=== PATIENT | female | born 1980 | race Two or more races ===

== ENCOUNTER 2024-01-30 22:10 | Inpatient (IN) | payer OTHER, MEDICAID ==
[~2024-01-30] VITALS: Ht 160 cm; Wt 105.0 kg
[2024-01-30] MEDS: ACETAMINOPHEN 500 MG TAB PO ONE (22:41)
[2024-01-31 00:20] LABS: Basophils # (auto) 0 10 ^3/uL (0-0.2); Basophils % (auto) 0.2 % (0.0-2.0); Eosinophils # (auto) 0 10 ^3/uL (0-0.8); Hematocrit 30.7 % (36.0-46.0); Hemoglobin 9.6 g/dL (12.2-16.2); Mean Corpuscular Hemoglobin 25.3 pg (28.0-32.0); Mean Corpuscular Hgb Conc. 31.4 g/dL (32.0-36.0); Mean Corpuscular Volume 80.8 fL (80.0-100.0); Monocytes # (auto) 0.9 10 ^3/uL (0-1.3); Monocytes % (auto) 5.3 % (0.0-12.0); Neutrophils # (auto) 14.6 10 ^3/uL (1.6-8.6); Neutrophils % (auto) 88.5 % (37.0-80.0); Platelet Count (auto) 329 10^3/uL (140-450); Red Cell Distribution Width 15.3 % (11.8-14.3); White Blood Cell 16.5 10^3/uL (4.4-10.8)
[2024-01-31 00:29] LABS: Chloride 102 mmol/L (98-107); Potassium 3.1 mmol/L (3.5-5.1); Sodium 134 mmol/L (136-145)
[2024-01-31 00:30] LABS: Anion Gap 11 (5-15); Carbon Dioxide 21 mmol/L (20-31)
[2024-01-31 00:31] LABS: Calcium 8.8 mg/dL (8.7-10.4)
[2024-01-31 00:35] LABS: BUN/Creatinine Ratio 7.6 (10.0-20.0); Blood Urea Nitrogen 7 mg/dL (9-23); Glucose 196 mg/dL (74-106)
[2024-01-31 00:41] LABS: Lactic Acid w/Reflex 3.2 mmol/L (0.4-2.0)
[2024-01-31 01:15] VITALS: PULSE 86; RESP 24; O2SAT 97
[2024-01-31 01:18] LABS: Urine Bacteria None Seen /hpf (None Seen)
[2024-01-31] MEDS: cefTRIAXone 1GM/50ML D5W 50 ML IV ONE (01:23)
[2024-01-31] MEDS: SODIUM CHLORIDE 0.9% 1,000 ML IV ONE ×5 (01:23→12:11)
[2024-01-31 01:29] LABS: Urine Blood 1+ /uL (Negative); Urine Clarity Turbid (Clear); Urine Color Light-Yellow (Yellow); Urine Protein, UAD 1+ (Negative); Urine Specific Gravity 1.013 (1.001-1.035); Urine Urobilinogen Normal (Negative); Urine WBC 181 /hpf (0 - 5)
[2024-01-31] MEDS: VANCOMYCIN 1GM/250ML KIT 200 ML IV ONE ×2 (02:22→04:51)
--- NOTE | 2024-01-31 02:55 | ED.PDOC ---
History of Present Illness HPI Comments 43 y/o F presents with c/o vaginal abscess for the past 3 days, today. Patient endorses on noticing abscess to her left labia for the past 3 days and being sent after being seen and evaluated at [facility] urgent care facility for further workup, due to being found with a fever temperature of 102.0F and an elevated heart rate. Patient denies having any vaginal discharge, pain, chills, or other associated symptoms or modifiers at this time. 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 Family History Family History: Unknown Social History Smoker: Non-Smoker Alcohol: Denies ETOH Use Drugs: Denies Drug Use Lives In: Home All Other Systems: Reviewed and Negative (see HPI) Physical Exam General Appearance: Moderate Distress, Obese HEENT: Normal ENT Inspection, Pharynx Normal, TMs Normal Neck: Full Range of Motion, Non-Tender, Normal, Normal Inspection Respiratory: Chest Non-Tender, Lungs Clear, No Accessory Muscle Use, No Respiratory Distress, Normal Breath Sounds Cardiovascular: No Edema, No JVD, No Murmur, No Gallop, Normal Peripheral Pulses, Regular Rate/Rhythm Breast Exam: Deferred Gastrointestinal: No Organomegaly, Non Tender, No Pulsatile Mass, Normal Bowel Sounds, Soft Genitalia: Other Pelvic: Deferred, Other (Large left Bartholin's cyst) Rectal: Deferred Extremities: No calf tenderness, Normal capillary refill, Normal inspection, Normal range of motion, Non-tender, No pedal edema Musculoskeletal : Apperance: Normal Neurologic: Alert, hospital cleaning specialist II-XII nml as Tested, No Motor Deficits, Normal Affect, Normal Mood, No Sensory Deficits Cerebellar Function: Normal Reflexes: Normal Skin: Dry, Normal Color, Warm Lymphatic: No Adenopathy Was a procedure done? Was a procedure done?: No Differential Dx Considerations may include: Bartholin cyst X-Ray, Labs, Meds, VS Vital Signs Date Time Temp Pulse Resp B/P (MAP) Pulse Ox O2 Delivery O2 Flow Rate FiO2 01/31/24 03:23 86/42 01/31/24 03:14 77 22 86/42 (57) 97 01/31/24 03:12 79 25 76/34 (48) 97 01/31/24 01:56 75 15 97/56 (70) 95 01/31/24 01:47 Room Air* 0 21 01/31/24 01:15 98.2 86 24 93/56 (68) 97 98.2 01/31/24 01:15 86 24 97 Room Air* 0 21 01/31/24 01:15 98.2 01/30/24 22:41 102.0 01/30/24 22:30 102.0 107 16 99/62 (74) 97 Lab Test 01/31/24 01:57 01/30/24 23:45 01/30/24 22:42 Range/Units Lactic Acid Level 1.5 3.2 *H 0.4-2.0 mmol/L White Blood Count 16.5 H 4.4-10.8 10^3/uL Red Blood Count 3.80 L 4.0-5.20 10^6/uL Hemoglobin 9.6 L 12.2-16.2 g/dL Hematocrit 30.7 L 36.0-46.0 % Mean Corpuscular Volume 80.8 80.0-100.0 fL Mean Corpuscular Hemoglobin 25.3 L 28.0-32.0 pg Mean Corpuscular Hemoglobin Concent 31.4 L 32.0-36.0 g/dL Red Cell Distribution Width 15.3 H 11.8-14.3 % Platelet Count 329 140-450 10^3/uL Mean Platelet Volume 6.9 6.9-10.8 fL Neutrophils (%) (Auto) 88.5 H 37.0-80.0 % Lymphocytes (%) (Auto) 6.0 L 10.0-50.0 % Monocytes (%) (Auto) 5.3 0.0-12.0 % Eosinophils (%) (Auto) 0.0 0.0-7.0 % Basophils (%) (Auto) 0.2 0.0-2.0 % Neutrophils # (Auto) 14.6 H 1.6-8.6 10 ^3/uL Lymphocytes # (Auto) 1.0 0.4-5.4 10 ^3/uL Monocytes # (Auto) 0.9 0-1.3 10 ^3/uL Eosinophils # (Auto) 0 0-0.8 10 ^3/uL Basophils # (Auto) 0 0-0.2 10 ^3/uL Nucleated Red Blood Cells 0.0 % Sodium Level 134 L 136-145 mmol/L Potassium Level 3.1 L 3.5-5.1 mmol/L Chloride Level 102 98-107 mmol/L Carbon Dioxide Level 21 20-31 mmol/L Anion Gap 11 5-15 Blood Urea Nitrogen 7 L 9-23 mg/dL Creatinine 0.92 0.550-1.02 mg/dL Glomerular Filtration Rate Calc 80 >90 mL/min BUN/Creatinine Ratio 7.6 L 10.0-20.0 Serum Glucose 196 H 74-106 mg/dL Calcium Level 8.8 8.7-10.4 mg/dL Urine Color Light-yellow Yellow Urine Clarity Turbid H Clear Urine pH 6.0 5.0-9.0 Urine Specific [place] 1.013 1.001-1.035 Urine Protein 1+ H Negative Urine Ketones Negative Negative Urine Blood 1+ H Negative /uL Urine Nitrite Negative Negative Urine Bilirubin Negative Negative Urine Urobilinogen Normal Negative mg/dL Urine Leukocyte Esterase 3+ Negative /uL Urine RBC 9 0 - 4 /hpf Urine WBC 181 0 - 5 /hpf Urine Squamous Epithelial Cells Mod <5 /hpf Urine Bacteria None seen None Seen /hpf Urine Glucose Normal Normal mg/dL Urine Test Negative Negative Current Medications Medications (Trade) Dose Ordered Sig/Key Route Start Time Stop Time Status Last Admin Acetaminophen (Tylenol Tablet) 1,000 mg ONCE ONCE PO 01/30/24 22:30 01/30/24 22:31 DC 01/30/24 22:41 Sodium Chloride 1,000 ml @ 1,000 mls/hr Q1H ONCE IV 01/31/24 01:00 01/31/24 01:59 DC 01/31/24 01:23 Sodium Chloride 1,000 ml @ 1,000 mls/hr Q1H ONCE IV 01/31/24 01:00 01/31/24 01:59 DC 01/31/24 01:23 Ceftriaxone Sodium 50 ml @ 100 mls/hr ONCE ONCE IV 01/31/24 01:00 01/31/24 01:29 DC 01/31/24 01:23 Vancomycin HCl 200 ml @ 200 mls/hr ONCE ONCE IV 01/31/24 01:00 01/31/24 01:59 DC 01/31/24 02:22 Fentanyl Citrate 100 mcg ONCE ONCE IV 01/31/24 03:00 01/31/24 03:01 DC 01/31/24 03:23 In 1st lactic acid is 3.2. Second lactic acid is 1.5 UA reveals urinary tract infection. CBC reveals a white blood cell count of 16.5. A septic workup was carried out. The patient is seen IV fluids antibiotics and Tylenol for fever. The patient was accepted by Dr. Mascorro at [facility]. Authorization #[id number] Time of 1ST Reevaluation: 00:00 Reevaluation 1ST: Unchanged Patient Education/Counseling: Diagnosis, Treatment Family Education/Counseling: No Family Present Departure 1 Departure Time of Disposition: 04:01 Impression: Primary Impression: Bartholin cyst Additional Impressions: UTI (urinary tract infection) Qualified Codes: N39.0 - Urinary tract infection, site not specified; R31.9 - Hematuria, unspecified Sepsis Qualified Codes: A41.9 - Sepsis, unspecified organism Disposition: 02 SHORT TERM HOSPITAL Condition: Stable Additional Instructions: The patient will be transferred to [place] by Dr. Mascorro Discharged With: Self Critical Care Note Critical Care Time?: Yes (35 min-critical care time only) Stability Stability form required: No Heart Score Heart Score: Heart Score Response (Comments) Value History N/A 0 EKG N/A 0 Age N/A 0 Risk Factors N/A 0 Troponin N/A 0 Total 0 I personally scribed for SONIA SLOAN MD ([email or web address]) on 01/31/24 at 02:55. Electronically submitted by Aryan Mullins ([email or web address]). SONIA SLOAN MD Jan 31, 2024 02:55
[2024-01-31] MEDS: fentaNYL CITRATE 100 MCG/2 ML VL IV ONE (03:23)
[2024-01-31] MEDS ORDERED: ONDANSETRON HCL 4 MG/2 ML VIAL IV PRN (04:30)
[2024-01-31] MEDS ORDERED: VANCOMYCIN PER PHARMACY 0 MG IV SCH (04:30)
[2024-01-31] MEDS: IOHEXOL 300 MG/ML 100ML BOTTLE IJ ONE (04:51)
[2024-01-31] MEDS: LIDOCAINE 1% HCL (LOCAL ANESTH.) INJ 20ML MDV ONE (04:52)
[2024-01-31] MEDS: POTASSIUM CHL 20 Meq TABLET PO ONE (05:05)
--- NOTE | 2024-01-31 05:18 | DVH ---
Exam: CT CT AB PEL WITH IV CON ONLY History: left sided pelvic pain/swelling r/o abscess Comparison Study: None available at time of dictation. Technique: Multidetector spiral CT of the abdomen was performed from lung bases to pubic symphysis. Axial imaging was performed with intravenous contrast following the uneventful administration of 100 ml Omnipaque 300. Coronal and sagittal multiplanar reformats were obtained from the axial data set b y the technologist. Radiation Dose : 1. Abdomen/Pelvis: CTDIvol 25.3 mGy, DLP 1520.9 mGy*cm. Findings: Lung Bases: Lung bases are clear. Visualized portions of the heart and pericardium are unremarkable. Liver: The liver is normal in size. No focal lesions. Gallbladder and Biliary Tree: The gallbladder is unremarkable No intrahepatic or extrahepatic bilia ry ductal dilatation. Spleen: Unremarkable Pancreas: The pancreas enhances normally and there are no focal lesions. The main pancreatic duct i s not dilated Adrenal Glands: Unremarkable Kidneys: Kidneys enhance symmetrically. No hydronephrosis. Punctate nonobstructing left nephrolithia sis. GI tract: Evidence of prior gastric surgery. There is a hiatal hernia. No evidence of small bowel wal l thickening or abnormal dilatation to suggest bowel obstruction. The colon is unremarkable. The appe ndix is not visualized, however no inflammatory changes in the right lower quadrant to suggest acute appendicitis. Peritoneum/mesentery/retroperitoneum. No evidence of free intraperitoneal air. No ascites. No evidenc e of suspicious lymphadenopathy. Abdominal Wall: Unremarkable. Vasculature: Abdominal aorta and main branches are unremarkable. Normal vascular enhancement. Urinary Bladder: Grossly unremarkable for degree of distention. Pelvic Organs: Unremarkable Musculoskeletal: No aggressive focal bony lesions, acute fractures or dislocation. Soft tissues: There is infiltration of the fat in the left left groin without fluid collection. IMPRESSION: 1. Infiltration of the fat in the left groin suggesting infectious or inflammatory etiology/celluliti s. No evidence of fluid collection. 2. Punctate nonobstructing left nephrolithiasis. END IMPRESSION:
--- NOTE | 2024-01-31 07:10 | DVHHP2 ---
History of Present Illness Reason for Visit: Vaginal abscess History of Present Illness 43-year-old female presents for evaluation of vaginal abscess. Patient reports noticing a lump/abscess three days ago her left labia. Patient was seen at urgent care was advised to present to emergency department due to tachycardia and low blood pressure. Patient denies any other acute complaints at the moment. Past Medical History None Past Surgical History , gastric bypass and hysterectomy Family History Noncontributory Smoke: No ALCOHOL: none Drugs: None Lives: with Family Review of Systems Review of Systems Review of systems are currently negative otherwise addressed in HPI. Allergies: Coded Allergies: Ibuprofen (Verified Allergy, Unknown, 01/30/24) Medications Current Medications Medications Dose Ordered Sig/Key Route Start Time Stop Time Status Last Admin Dose Admin Vancomycin HCl 0 ml @ 0 mls/hr UD IV 01/31/24 04:30 UNV Acetaminophen/ Hydrocodone Bitart 1 tab Q4HP PRN PO 01/31/24 04:30 Ondansetron HCl 4 mg Q4HP PRN IV 01/31/24 04:30 Acetaminophen 650 mg Q6HP PRN PO 01/31/24 04:30 Ceftriaxone Sodium 50 ml @ 100 mls/hr DAILY@09 IV 01/31/24 09:00 UNV Exam Vital Signs Vital Signs Date Time Temp Pulse Resp B/P (MAP) Pulse Ox O2 Delivery O2 Flow Rate FiO2 01/31/24 05:47 80 24 80/43 (55) 98 01/31/24 04:00 98.1 98.1 01/31/24 01:47 Room Air* 0 21 Exam Gen: 43-year-old female in mild distress, obese Skin: Warm, dry, normal color and texture, no rash. HEENT: Normocephalic atraumatic, mucous membranes moist and pink. Neck: Cervical and supraclavicular nodes normal without enlargement, trachea is midline, thyroid gland is normal without masses. Pulmonary: Clear to auscultation and percussion bilaterally. Cardiac: Regular rate and rhythm. No murmur : Large left Bartholin cyst Abdomen: Soft, nontender, nondistended, bowel sounds present all 4 quadrants, no guarding, no rigidity, no organomegaly. Extremities: No cyanosis, clubbing, no edema Neuro: Cranial nerves II through XII grossly intact, normal affect and speech, no focal motor deficits. Labs/Xrays ORDERING PHYSICIAN: EDWARD HART PROCEDURE(s): ABPLIV - CT AB PEL WITH IV CON ONLY REASON: left sided pelvic pain/swelling r/o abscess ORDER NUMBER(s): [id number], ACCESSION NUMBER(s): [id number] Exam: CT CT AB PEL WITH IV CON ONLY History: left sided pelvic pain/swelling r/o abscess Comparison Study: None available at time of dictation. Technique: Multidetector spiral CT of the abdomen was performed from lung bases to pubic symphysis. Axial imaging was performed with intravenous contrast following the uneventful administration of 100 ml Omnipaque 300. Coronal and sagittal multiplanar reformats were obtained from the axial data set by the technologist. Radiation Dose : 1. Abdomen/Pelvis: CTDIvol 25.3 mGy, DLP 1520.9 mGy*cm. Findings: Lung Bases: Lung bases are clear. Visualized portions of the heart and pericardium are unremarkable. Liver: The liver is normal in size. No focal lesions. Gallbladder and Biliary Tree: The gallbladder is unremarkable No intrahepatic or extrahepatic biliary ductal dilatation. Spleen: Unremarkable Pancreas: The pancreas enhances normally and there are no focal lesions. The main pancreatic duct is not dilated Adrenal Glands: Unremarkable Kidneys: Kidneys enhance symmetrically. No hydronephrosis. Punctate nonob structing left nephrolithiasis. GI tract: Evidence of prior gastric surgery. There is a hiatal hernia. No evidence of small bowel wall thickening or abnormal dilatation to suggest bowel obstruction. The colon is unremarkable. The appendix is not visualized, however no inflammatory changes in the right lower quadrant to suggest acute appendicitis. Peritoneum/mesentery/retroperitoneum. No evidence of free intraperitoneal air. No ascites. No evidence of suspicious lymphadenopathy. Abdominal Wall: Unremarkable. Vasculature: Abdominal aorta and main branches are unremarkable. Normal vascular enhancement. Urinary Bladder: Grossly unremarkable for degree of distention. Pelvic Organs: Unremarkable Musculoskeletal: No aggressive focal bony lesions, acute fractures or dislocation. Soft tissues: There is infiltration of the fat in the left left groin without fluid collection. IMPRESSION: 1. Infiltration of the fat in the left groin suggesting infectious or inflammatory etiology/cellulitis. No evidence of fluid collection. 2. Punctate nonobstructing left nephrolithiasis. END IMPRESSION: ATED BY: TERESE HINTON MD Labs Test 01/31/24 01:57 01/30/24 23:45 01/30/24 22:42 Range/Units Lactic Acid Level 1.5 0.4-2.0 mmol/L White Blood Count 16.5 H 4.4-10.8 10^3/uL Red Blood Count 3.80 L 4.0-5.20 10^6/uL Hemoglobin 9.6 L 12.2-16.2 g/dL Hematocrit 30.7 L 36.0-46.0 % Mean Corpuscular Volume 80.8 80.0-100.0 fL Mean Corpuscular Hemoglobin 25.3 L 28.0-32.0 pg Mean Corpuscular Hemoglobin Concent 31.4 L 32.0-36.0 g/dL Red Cell Distribution Width 15.3 H 11.8-14.3 % Platelet Count 329 140-450 10^3/uL Mean Platelet Volume 6.9 6.9-10.8 fL Neutrophils (%) (Auto) 88.5 H 37.0-80.0 % Lymphocytes (%) (Auto) 6.0 L 10.0-50.0 % Monocytes (%) (Auto) 5.3 0.0-12.0 % Eosinophils (%) (Auto) 0.0 0.0-7.0 % Basophils (%) (Auto) 0.2 0.0-2.0 % Neutrophils # (Auto) 14.6 H 1.6-8.6 10 ^3/uL Lymphocytes # (Auto) 1.0 0.4-5.4 10 ^3/uL Monocytes # (Auto) 0.9 0-1.3 10 ^3/uL Eosinophils # (Auto) 0 0-0.8 10 ^3/uL Basophils # (Auto) 0 0-0.2 10 ^3/uL Nucleated Red Blood Cells 0.0 % Sodium Level 134 L 136-145 mmol/L Potassium Level 3.1 L 3.5-5.1 mmol/L Chloride Level 102 98-107 mmol/L Carbon Dioxide Level 21 20-31 mmol/L Anion Gap 11 5-15 Blood Urea Nitrogen 7 L 9-23 mg/dL Creatinine 0.92 0.550-1.02 mg/dL Glomerular Filtration Rate Calc 80 >90 mL/min BUN/Creatinine Ratio 7.6 L 10.0-20.0 Serum Glucose 196 H 74-106 mg/dL Calcium Level 8.8 8.7-10.4 mg/dL Urine Color Light-yellow Yellow Urine Clarity Turbid H Clear Urine pH 6.0 5.0-9.0 Urine Specific [place] 1.013 1.001-1.035 Urine Protein 1+ H Negative Urine Ketones Negative Negative Urine Blood 1+ H Negative /uL Urine Nitrite Negative Negative Urine Bilirubin Negative Negative Urine Urobilinogen Normal Negative mg/dL Urine Leukocyte Esterase 3+ Negative /uL Urine RBC 9 0 - 4 /hpf Urine WBC 181 0 - 5 /hpf Urine Squamous Epithelial Cells Mod <5 /hpf Urine Bacteria None seen None Seen /hpf Urine Glucose Normal Normal mg/dL Urine Test Negative Negative Assessment/Plan Assessment/Plan Assessment Bartholin cyst Leukocytosis Early sepsis UTI Hypokalemia Hypotension Plan Admit the patient to telemetry to the hospitalist Rocephin/vancomycin Maintenance IV fluids Replete electrolytes Continue treatment per orders. Plan discussed with: Patient My Orders Orders - MANDA FAITH Procedure Category Date Status Time * Surgical Consult CONS 01/31/24 Transmitted Vancomycin Per PHA 01/31/24 Pending Pharmacy 04:30 Regular Diet DIET 01/31/24 Transmitted Breakfast Basic Metabolic Panel LAB 02/01/24 Verified 04:00 Admit ADMIT 01/31/24 Transmitted 04:24 Hydrocodone-Acet PHA 01/31/24 In Process 5/325mg Tab ([place] 04:30 Ondansetron Hcl PHA 01/31/24 In Process (Zofran) 04:30 Complete Blood Count LAB 02/01/24 Verified 04:00 Condition: Stable KI 01/31/24 In Process 04:24 Acetaminophen Tablet PHA 01/31/24 In Process (Tylenol Tablet) 04:30 Bedrest With Bathroom KI 01/31/24 In Process Privileg 04:24 Ceftriaxone 1gm/50ml PHA 01/31/24 Logged D5w (Rocephin) 09:00 Albumin 5% (Albutein) PHA 01/31/24 Logged 07:00 Sodium Chloride 0.9% PHA 01/31/24 Logged 07:00 Date of Service: Jan 31, 2024 Billing Provider: MANDA FAITH Common Visit Codes: [id number] INP/OBS CARE (HIGH) MANDA FAITH AGACNP Jan 31, 2024 07:10
[2024-01-31 07:32] VITALS: PULSE 86; RESP 16; O2SAT 99
[2024-01-31] MEDS: ALBUMIN 5% 250 ML IV ONE (07:41)
[2024-01-31] MEDS: ACETAMINOPHEN 325 MG TAB PO PRN (09:31)
[2024-01-31] MEDS: cefTRIAXone 1GM/50ML D5W 50 ML IV SCH (09:32)
--- NOTE | 2024-01-31 11:25 | DVHPN2 ---
Subjective Patient seen and examined at bedside. No complaint today. Reviewed: Care Plan, H&P, Labs, Medications, Previous Orders, Radiology Changes from previous H/P or p: No Changes Objective Vitals Vital Signs Date Time Temp Pulse Resp B/P (MAP) Pulse Ox O2 Delivery O2 Flow Rate FiO2 01/31/24 08:00 83 01/31/24 07:32 16 99 Room Air* 0 21 01/31/24 07:32 98.2 83/50 (61) 98.2 Intake/Output Intake and Output 01/31/24 07:00 Intake Total 3250 ml Balance 3250 ml Intake IV Total 3250 ml General Appearance: Alert, No acute distress HEENT: Atraumatic, PERRLA, EOMI, Mucous membr. moist/pink Neck: Supple Lungs: Clear to auscultation, Normal air movement Cardiovascular: Regular rate, Normal S1, Normal S2, No murmurs, Gallops, Rubs Abdomen: Normal bowel sounds, Soft, No tenderness Extremities: Normal pulses Neuro: Cranial nerves 3-12 NL Psych/Mental Status: Mental status NL Medications Current Medications Medications Dose Ordered Sig/Key Route Start Time Stop Time Status Last Admin Dose Admin Vancomycin HCl 0 ml @ 0 mls/hr UD IV 01/31/24 04:30 Acetaminophen/ Hydrocodone Bitart 1 tab Q4HP PRN PO 01/31/24 04:30 Ondansetron HCl 4 mg Q4HP PRN IV 01/31/24 04:30 Acetaminophen 650 mg Q6HP PRN PO 01/31/24 04:30 01/31/24 09:31 650 MG Ceftriaxone Sodium 50 ml @ 100 mls/hr DAILY@09 IV 01/31/24 09:00 01/31/24 09:32 100 MLS/HR Laboratory Results Laboratory Tests 01/30/24 23:45 Chemistry Test 01/30/24 23:45 Calcium Level 8.8 mg/dL (8.7-10.4) Urinalysis Test 01/30/24 22:42 Urine Color Light-yellow (Yellow) Urine Clarity Turbid (Clear) H Urine pH 6.0 (5.0-9.0) Urine Specific [place] 1.013 (1.001-1.035) Urine Protein 1+ (Negative) H Urine Ketones Negative (Negative) Urine Blood 1+ /uL (Negative) H Urine Nitrite Negative (Negative) Urine Bilirubin Negative (Negative) Urine Urobilinogen Normal mg/dL (Negative) Urine Leukocyte Esterase 3+ /uL (Negative) Urine RBC 9 /hpf (0 - 4) Urine WBC 181 /hpf (0 - 5) Urine Squamous Epithelial Cells Mod /hpf (<5) Urine Bacteria None seen /hpf (None Seen) Urine Glucose Normal mg/dL (Normal) Urine Test Negative (Negative) Labs and/or images reviewed: Labs reviewed by me Assessment/Plan Assessment/Plan Bartholin cyst Leukocytosis Early sepsis UTI Hypokalemia Hypotension Current management with IV antibiotic Rocephin and Flagyl. Waiting for OBGYN to see the patient. Continuing to monitor culture Replace electrolytes Continuing pain medication Plan discussed with: Patient Date of Service: Jan 31, 2024 Billing Provider: ALMA MANN MD Common Visit Codes: [id number] INP/OBS CARE(HIGH) ALMA MANN MD Jan 31, 2024 11:24
[2024-01-31] MEDS: VANCOMYCIN 1GM/250ML KIT 200 ML IV SCH (12:40)
[2024-01-31 15:00] VITALS: PULSE 79; RESP 13; O2SAT 97
[2024-01-31 16:04] VITALS: BP 97/57; PULSE 86; RESP 18; TEMP 100; O2SAT 98
[2024-01-31] MEDS: HYDROcodone-ACET 5/325MG TAB PO PRN (16:04)
[2024-01-31] MEDS ORDERED: OMEP1CAP70 PO (16:06)
[2024-01-31] MEDS ORDERED: SERT-289 PO (16:06)
[2024-01-31 16:09] VITALS: BP 97/57; PULSE 86; RESP 18; TEMP 100; O2SAT 98
[2024-02-01] VITALS (7 sets, daily range): BP systolic 94–100; BP diastolic 47–65; PULSE 71–88; RESP 16–20; TEMP 98.2–98.7; O2SAT 91–96
[2024-02-01 04:33] LABS: Anion Gap 7 (5-15); Carbon Dioxide 24 mmol/L (20-31); Chloride 109 mmol/L (98-107); Potassium 3.4 mmol/L (3.5-5.1); Sodium 140 mmol/L (136-145)
[2024-02-01 04:34] LABS: Calcium 9.1 mg/dL (8.7-10.4)
[2024-02-01 04:37] LABS: Basophils # (auto) 0 10 ^3/uL (0-0.2); Basophils % (auto) 0.2 % (0.0-2.0); Hematocrit 27.8 % (36.0-46.0); Hemoglobin 8.9 g/dL (12.2-16.2); Mean Corpuscular Hemoglobin 25.7 pg (28.0-32.0); Monocytes # (auto) 0.7 10 ^3/uL (0-1.3); Monocytes % (auto) 4.9 % (0.0-12.0); Red Blood Cells 3.45 10^6/uL (4.0-5.20)
[2024-02-01 04:39] LABS: Eosinophils # (auto) 0.2 10 ^3/uL (0-0.8); Eosinophils % (auto) 1.2 % (0.0-7.0); Glucose 125 mg/dL (74-106); Lymphocytes % (auto) 7.3 % (10.0-50.0); Mean Corpuscular Hgb Conc. 31.9 g/dL (32.0-36.0); Mean Corpuscular Volume 80.5 fL (80.0-100.0); Neutrophils # (auto) 11.8 10 ^3/uL (1.6-8.6); Neutrophils % (auto) 86.4 % (37.0-80.0); Platelet Count (auto) 280 10^3/uL (140-450); Red Cell Distribution Width 15.2 % (11.8-14.3); White Blood Cell 13.6 10^3/uL (4.4-10.8)
[2024-02-01 04:43] LABS: BUN/Creatinine Ratio 7.1 (10.0-20.0); Blood Urea Nitrogen < 5 mg/dL (9-23)
--- NOTE | 2024-02-01 13:29 | DVHINCON2 ---
DATE OF CONSULTATION: 02/01/2024 REASON FOR CONSULTATION: Rule out Bartholin's gland cyst. HISTORY OF PRESENT ILLNESS: The patient is a 43-year-old 4, para 3-0-1-3, admitted for a suspected vaginal abscess for the last 3 days. The patient complained of having swollen left labia. She has care at [facility]. The patient was found to have temperature 102. She was admitted for sepsis, UTI, suspected vulvar abscess. She never reports having any drainage. She gives history of cervical cancer, hysterectomy as a result of that radiation and chemo. Recently, her CT reveals infiltration of fat in the left groin, suggesting of infectious or inflammatory cellulitis. There is also a punctate nonobstructing left nephrolithiasis. PAST MEDICAL HISTORY: Cervical cancer, gastric bypass. PAST SURGICAL HISTORY: , hysterectomy, ectopic surgery. SOCIAL HISTORY: None. FAMILY HISTORY: None. OBSTETRIC AND GYNECOLOGIC HISTORY: Three sections, one ectopic . REVIEW OF SYSTEMS: Consistent with HPI. PHYSICAL EXAMINATION: GENERAL APPEARANCE: The patient is in no distress. HEENT: Within normal limits. CARDIOVASCULAR: Regular rate and rhythm. LUNGS: Clear to auscultation. BREASTS: Symmetrical. No masses. ABDOMEN: Obese, nontender. PELVIC: External genitalia reveals left labia majora swollen larger than right. No actual drainage noted and vulva mons pubis appears to be warm to touch with superficial cellulitis and redness. No pus, no drainage noted from vagina. EXTREMITIES: No clubbing, cyanosis or edema. IMPRESSION: * Edematous mons pubis cellulitis suspicious for potential obstructive lymphatic drainage due to cervical cancer. * Sepsis, improving, urinary tract infection. * History of cervical cancer, status post radiation and chemo. RECOMMENDATION: The patient has been on antibiotics. Somewhat improvement has been seen but I recommend the patient to be transferred to [place] for continued observation by NUCLEAR MEDICAL TECHNOLOGIST oncologist. We will sign off. This presentation is not one of Bartholin's gland rather appears to be related to her cervical cancer, potential obstructive lymphatic system. Thank you very much for this consultation DO RACHEL Colunga TID: [id number] RECEIPT: [id number]
--- NOTE | 2024-02-01 13:45 | DVHDS2 ---
Discharge Summary Date of Admission Jan 31, 2024 at 04:27 Date of Discharge: Feb 01, 2024 Labs/Diagnostic Data: Laboratory Results Test 02/01/24 03:54 01/31/24 01:57 01/30/24 22:42 White Blood Count 13.6 10^3/uL (4.4-10.8) Red Blood Count 3.45 10^6/uL (4.0-5.20) Hemoglobin 8.9 g/dL (12.2-16.2) Hematocrit 27.8 % (36.0-46.0) Mean Corpuscular Volume 80.5 fL (80.0-100.0) Mean Corpuscular Hemoglobin 25.7 pg (28.0-32.0) Mean Corpuscular Hemoglobin Concent 31.9 g/dL (32.0-36.0) Red Cell Distribution Width 15.2 % (11.8-14.3) Platelet Count 280 10^3/uL (140-450) Mean Platelet Volume 6.9 fL (6.9-10.8) Neutrophils (%) (Auto) 86.4 % (37.0-80.0) Lymphocytes (%) (Auto) 7.3 % (10.0-50.0) Monocytes (%) (Auto) 4.9 % (0.0-12.0) Eosinophils (%) (Auto) 1.2 % (0.0-7.0) Basophils (%) (Auto) 0.2 % (0.0-2.0) Neutrophils # (Auto) 11.8 10 ^3/uL (1.6-8.6) Lymphocytes # (Auto) 1.0 10 ^3/uL (0.4-5.4) Monocytes # (Auto) 0.7 10 ^3/uL (0-1.3) Eosinophils # (Auto) 0.2 10 ^3/uL (0-0.8) Basophils # (Auto) 0 10 ^3/uL (0-0.2) Nucleated Red Blood Cells 0.0 % Sodium Level 140 mmol/L (136-145) Potassium Level 3.4 mmol/L (3.5-5.1) Chloride Level 109 mmol/L (98-107) Carbon Dioxide Level 24 mmol/L (20-31) Anion Gap 7 (5-15) Blood Urea Nitrogen < 5 mg/dL (9-23) Creatinine 0.70 mg/dL (0.550-1.02) Glomerular Filtration Rate Calc 111 mL/min (>90) BUN/Creatinine Ratio 7.1 (10.0-20.0) Serum Glucose 125 mg/dL (74-106) Calcium Level 9.1 mg/dL (8.7-10.4) Vancomycin Level Trough 9.5 ug/mL (5-10) Lactic Acid Level 1.5 mmol/L (0.4-2.0) Urine Color Light-yellow (Yellow) Urine Clarity Turbid (Clear) Urine pH 6.0 (5.0-9.0) Urine Specific [place] 1.013 (1.001-1.035) Urine Protein 1+ (Negative) Urine Ketones Negative (Negative) Urine Blood 1+ /uL (Negative) Urine Nitrite Negative (Negative) Urine Bilirubin Negative (Negative) Urine Urobilinogen Normal mg/dL (Negative) Urine Leukocyte Esterase 3+ /uL (Negative) Urine RBC 9 /hpf (0 - 4) Urine WBC 181 /hpf (0 - 5) Urine Squamous Epithelial Cells Mod /hpf (<5) Urine Bacteria None seen /hpf (None Seen) Urine Glucose Normal mg/dL (Normal) Urine Test Negative (Negative) Other Laboratory Tests 02/01/24 03:54 Brief Hx & Hospital Course: 43-year-old female was admitted for possible abscess of the left labium majora. Said she had the swelling for about 3 days which was starting to get bigger gradually and is spread up to the pubic area and the suprapubic area with pain and tenderness She was having temperature 102 No discharge No open wound She was given IV antibiotics Her WBCs improved from 16-13.6 today Potassium is 3.4 We consulted hardwood floor layer to see the patient, Dr. Guzmán has seen the patient today and recommended either to consult General surgery or transfer the patient to higher level of care since she belongs to [facility], Patient is stable, her fever has resolved, white count improved, vital signs are stable, the patient can be transferred to [facility] for further care Final diagnoses: 1. Cellulitis of the left groin and left labia majora and the suprapubic area 2. Rule out abscess History of cervical cancer and hysterectomy s/p deviation and chemo History of gastric bypass surgery Change Rocephin to Zosyn Continue vancomycin Transfer the patient as soon as possible Condition at Discharge: Stable Final Diagnosis/Problems List Left labia majora and pubic cellulitis, possible abscess Discharge Disposition: Acute Care Facility SNF Discharge Will this Physician continue t: No Discharge Statement: "Patient was advised to return to the ER or call 911 if any headaches, dizziness, shortness of breath, chest pain, abdominal pain, bleeding, fevers, or worsening of medical condition. Patient was counseled about treatment plan, medications, possible side effects, patientverbalized understanding. All questions were answered to the best of my ability. This discharge took greater then 30 minutes in planning, reviewing documentation, counseling the patient, and discussing with other team members." ASSESSMENT ASSESSMENT Assessment Date of Service: Feb 01, 2024 Billing Provider: RANCHO PEREZ MD Common Visit Codes: [id number] DISCH DAY >30min RANCHO PEREZ MD Feb 01, 2024 13:45
[2024-02-01] MEDS: POTASSIUM CHL 20 Meq TABLET PO ONE (14:48)
[2024-02-01] MEDS: PIPERACILLIN-TAZOB 3.375GM 100 ML IV SCH (17:41)
[2024-02-02] VITALS (7 sets, daily range): BP systolic 92–110; BP diastolic 56–75; PULSE 69–87; RESP 16–19; TEMP 97.4–99.7; O2SAT 90–98
[2024-02-02 07:18] LABS: Basophils # (auto) 0 10 ^3/uL (0-0.2); Eosinophils # (auto) 0.2 10 ^3/uL (0-0.8); Eosinophils % (auto) 1.7 % (0.0-7.0); Hemoglobin 8.6 g/dL (12.2-16.2); Monocytes # (auto) 0.6 10 ^3/uL (0-1.3)
[2024-02-02 07:21] LABS: Calcium 9.3 mg/dL (8.7-10.4); Potassium 4.2 mmol/L (3.5-5.1); Sodium 143 mmol/L (136-145)
[2024-02-02 07:22] LABS: Anion Gap 9 (5-15); Basophils % (auto) 0.1 % (0.0-2.0); Carbon Dioxide 25 mmol/L (20-31); Hematocrit 26.9 % (36.0-46.0); Lymphocytes % (auto) 10.5 % (10.0-50.0); Mean Corpuscular Hemoglobin 25.7 pg (28.0-32.0); Mean Corpuscular Hgb Conc. 31.9 g/dL (32.0-36.0); Mean Corpuscular Volume 80.6 fL (80.0-100.0); Monocytes % (auto) 6.7 % (0.0-12.0); Neutrophils # (auto) 7.8 10 ^3/uL (1.6-8.6); Platelet Count (auto) 320 10^3/uL (140-450); Red Blood Cells 3.33 10^6/uL (4.0-5.20); Red Cell Distribution Width 15.3 % (11.8-14.3); White Blood Cell 9.6 10^3/uL (4.4-10.8)
[2024-02-02 07:28] LABS: BUN/Creatinine Ratio 7.2 (10.0-20.0); Magnesium 1.9 mg/dL (1.6-2.6)
[2024-02-02 07:29] LABS: Blood Urea Nitrogen 5 mg/dL (9-23); Chloride 109 mmol/L (98-107); Glucose 109 mg/dL (74-106)
--- NOTE | 2024-02-02 11:44 | DVHPN2 ---
Subjective Diffuse the swelling has decreased compared to yesterday Changes from previous H/P or p: Changes Objective Vitals Vital Signs Date Time Temp Pulse Resp B/P (MAP) Pulse Ox O2 Delivery O2 Flow Rate FiO2 02/02/24 08:30 97.4 69 18 92/56 (68) 97 97.4 02/01/24 20:00 Room Air* 0 21 Intake/Output Intake and Output 02/02/24 07:00 Intake Total 1598 ml Balance 1598 ml Intake Oral 898 ml IV Total 700 ml # Voids 7 General Appearance: Alert, Oriented X3, Cooperative, No acute distress Lungs: Clear to auscultation, Normal air movement Cardiovascular: Regular rate, Normal S1, Normal S2, No murmurs Abdomen: Normal bowel sounds, Soft Extremities: No edema Medications Current Medications Medications Dose Ordered Sig/Key Route Start Time Stop Time Status Last Admin Dose Admin Vancomycin HCl 0 ml @ 0 mls/hr UD IV 01/31/24 04:30 Acetaminophen/ Hydrocodone Bitart 1 tab Q4HP PRN PO 01/31/24 04:30 01/31/24 22:43 1 TAB Ondansetron HCl 4 mg Q4HP PRN IV 01/31/24 04:30 Acetaminophen 650 mg Q6HP PRN PO 01/31/24 04:30 02/02/24 01:09 650 MG Vancomycin HCl 200 ml @ 200 mls/hr Q8H IV 01/31/24 13:00 02/02/24 05:15 200 MLS/HR Piperacillin Sod/ Tazobactam Sod 100 ml @ 25 mls/hr Q6HR IV 02/01/24 18:00 02/02/24 06:43 25 MLS/HR Laboratory Results Laboratory Tests 02/02/24 06:34 Chemistry Test 02/02/24 06:34 Calcium Level 9.3 mg/dL (8.7-10.4) Magnesium Level 1.9 mg/dL (1.6-2.6) Urinalysis Test 01/30/24 22:42 Urine Color Light-yellow (Yellow) Urine Clarity Turbid (Clear) H Urine pH 6.0 (5.0-9.0) Urine Specific [place] 1.013 (1.001-1.035) Urine Protein 1+ (Negative) H Urine Ketones Negative (Negative) Urine Blood 1+ /uL (Negative) H Urine Nitrite Negative (Negative) Urine Bilirubin Negative (Negative) Urine Urobilinogen Normal mg/dL (Negative) Urine Leukocyte Esterase 3+ /uL (Negative) Urine RBC 9 /hpf (0 - 4) Urine WBC 181 /hpf (0 - 5) Urine Squamous Epithelial Cells Mod /hpf (<5) Urine Bacteria None seen /hpf (None Seen) Urine Glucose Normal mg/dL (Normal) Urine Test Negative (Negative) Microbiology Microbiology Date/Time Source Procedure Growth Status 01/30/24 23:45 Blood Blood Culture - Preliminary NO GROWTH AFTER 48 HOURS OF INCUBATION. Resulted Assessment/Plan Assessment/Plan Cellulitis of the left groin and left labia majora and the suprapubic area Rule out abscess History of cervical cancer and hysterectomy has post radiation and chemotherapy History of gastric bypass surgery 43-year-old female with a history of cervical cancer, hysterectomy, radiation and chemo, came with pain and swelling in the area of the left labia majora and the pubic area IV antibiotics were given White count was 16.5 Today is 9.6 She was given Zosyn and vancomycin She was seen by a sales representative jewelry yesterday, she commended to consult General surgery Surgical consult is pending for today The patient gets her [facility] at [facility] and since she is stable we will transfer the patient to [place] once a bed is available Continue the IV antibiotics in the meantime Update: 3:30 pm: Discussed with Simone ARNOLD, since there is improvement in condition, and there is no surgical indication per Dr. Quintana, will keep here tonight, plan to DC home in am on PO Augmentin x 10 days and outpatient follow up if she keeps to improve clinically. Plan discussed with: Patient My Orders Orders - RANCHO PEREZ MD Procedure Category Date Status Time * Principal Archaeologist Consultation CONS 02/01/24 Transmitted 11:50 Piperacillin-Tazob PHA 02/01/24 In Process 3.375gm (Zosyn 3.375g 18:00 * Manager Of Pharmacy CONS 02/01/24 Transmitted Consult * Surgical Consult CONS 02/01/24 Transmitted Date of Service: Feb 02, 2024 Billing Provider: RANCHO PEREZ MD Common Visit Codes: [id number] INP/OBS CARE(HIGH) RANCHO PEREZ MD Feb 02, 2024 11:44
--- NOTE | 2024-02-02 14:14 | DVHINCON2 ---
Date of service: Feb 02, 2024 History of Present Illness 43-year-old female complaining of painful swelling involving her left labia for the past three days. Patient also reports temperature up to 102. Past Medical History Cervical cancer. Past Surgical History Gastric bypass surgery. . Hysterectomy. Surgery for ectopic Family History: Cardiovascular disease G8 MOTHER, Diabetes mellitus G8 MOTHER, G8 FATHER Family History Noncontributory Social History Denies alcohol, tobacco, IV drug use Allergies: Coded Allergies: Ibuprofen (Verified Allergy, Unknown, 01/30/24) Home Meds Reported Medications Sertraline HCl (Sertraline HCl) 50 Mg Tab, 1 TAB PO DAILY 01/31/24 Omeprazole (Omeprazole Dr) 20 Mg Cap, 1 CAP PO DAILY 01/31/24 Current Medications Current Medications Medications (Trade) Dose Ordered Sig/Key Route PRN Reason Start Time Stop Time Status Last Admin Piperacillin Sod/ Tazobactam Sod 100 ml @ 25 mls/hr Q6HR IV 02/01/24 18:00 02/02/24 13:17 Vital Signs Vital Signs Date Time Temp Pulse Resp B/P (MAP) Pulse Ox O2 Delivery O2 Flow Rate FiO2 02/02/24 14:01 98.1 75 18 104/62 (76) 97 98.1 02/02/24 08:00 Room Air* 0 21 Physical Exam GEN: Age-appropriate female in no acute distress. Alert. HEENT: Normocephalic atraumatic. Moist mucous membranes. Anicteric sclerae. CV: RRR Respiratory: CTAB ABD: Soft. Nontender nondistended : There is significant edema and induration of the left labia with minimal tenderness to palpation. There was no obvious purulent drainage. The edema extends to her suprapubic region without any obvious fluctuance. CT of the abdomen and pelvis: Infiltration of the fat in the left groin suggesting infectious or inflammatory etiology/cellulitis without obvious fluid collection. Labs/Diagnostic Data Labs Test 02/02/24 06:34 02/01/24 03:54 01/31/24 01:57 01/30/24 22:42 Range/Units White Blood Count 9.6 # 4.4-10.8 10^3/uL Red Blood Count 3.33 L 4.0-5.20 10^6/uL Hemoglobin 8.6 L 12.2-16.2 g/dL Hematocrit 26.9 L 36.0-46.0 % Mean Corpuscular Volume 80.6 80.0-100.0 fL Mean Corpuscular Hemoglobin 25.7 L 28.0-32.0 pg Mean Corpuscular Hemoglobin Concent 31.9 L 32.0-36.0 g/dL Red Cell Distribution Width 15.3 H 11.8-14.3 % Platelet Count 320 140-450 10^3/uL Mean Platelet Volume 7.1 6.9-10.8 fL Neutrophils (%) (Auto) 81.0 H 37.0-80.0 % Lymphocytes (%) (Auto) 10.5 10.0-50.0 % Monocytes (%) (Auto) 6.7 0.0-12.0 % Eosinophils (%) (Auto) 1.7 0.0-7.0 % Basophils (%) (Auto) 0.1 0.0-2.0 % Neutrophils # (Auto) 7.8 1.6-8.6 10 ^3/uL Lymphocytes # (Auto) 1.0 0.4-5.4 10 ^3/uL Monocytes # (Auto) 0.6 0-1.3 10 ^3/uL Eosinophils # (Auto) 0.2 0-0.8 10 ^3/uL Basophils # (Auto) 0 0-0.2 10 ^3/uL Nucleated Red Blood Cells 0.0 % Sodium Level 143 136-145 mmol/L Potassium Level 4.2 3.5-5.1 mmol/L Chloride Level 109 H 98-107 mmol/L Carbon Dioxide Level 25 20-31 mmol/L Anion Gap 9 5-15 Blood Urea Nitrogen 5 L 9-23 mg/dL Creatinine 0.69 0.550-1.02 mg/dL Glomerular Filtration Rate Calc 112 >90 mL/min BUN/Creatinine Ratio 7.2 L 10.0-20.0 Serum Glucose 109 H 74-106 mg/dL Calcium Level 9.3 8.7-10.4 mg/dL Magnesium Level 1.9 1.6-2.6 mg/dL Vancomycin Level Trough 9.5 5-10 ug/mL Lactic Acid Level 1.5 0.4-2.0 mmol/L Urine Color Light-yellow Yellow Urine Clarity Turbid H Clear Urine pH 6.0 5.0-9.0 Urine Specific [place] 1.013 1.001-1.035 Urine Protein 1+ H Negative Urine Ketones Negative Negative Urine Blood 1+ H Negative /uL Urine Nitrite Negative Negative Urine Bilirubin Negative Negative Urine Urobilinogen Normal Negative mg/dL Urine Leukocyte Esterase 3+ Negative /uL Urine RBC 9 0 - 4 /hpf Urine WBC 181 0 - 5 /hpf Urine Squamous Epithelial Cells Mod <5 /hpf Urine Bacteria None seen None Seen /hpf Urine Glucose Normal Normal mg/dL Urine Test Negative Negative Microbiology Date/Time Source Procedure Growth Status 01/30/24 23:45 Blood Blood Culture - Preliminary NO GROWTH AFTER 48 HOURS OF INCUBATION. Resulted Assessment 1. Left labial cellulitis/soft tissue infection without drainable abscess Plan/Recommendation 1. Continue IV antibiotics 2. If there was no clinical improvement patient may need surgical drainage 3. Transfer to [facility]. she is clinically stable for transfer from surgery POV Plan discussed with: Patient JOHNATHAN STONE MD Feb 02, 2024 14:14
[2024-02-03 00:51] VITALS: BP 116/72; PULSE 80; RESP 16; TEMP 98.6; O2SAT 92
[2024-02-03 05:00] VITALS: BP 100/57; PULSE 57; RESP 16; TEMP 97.9; O2SAT 97
[2024-02-03 08:00] VITALS: RESP 20
[2024-02-03 09:00] VITALS: BP 108/63; PULSE 58; RESP 17; TEMP 97.7; O2SAT 97
--- NOTE | 2024-02-03 12:18 | DVHPN2 ---
Subjective Patient seen and examined at bedside. No complaint today. Reviewed: Care Plan, H&P, Labs, Medications, Previous Orders, Radiology Changes from previous H/P or p: No Changes Objective Vitals Vital Signs Date Time Temp Pulse Resp B/P (MAP) Pulse Ox O2 Delivery O2 Flow Rate FiO2 02/03/24 09:00 97.7 58 17 108/63 (78) 97 97.7 02/03/24 08:00 Room Air* 0 21 Intake/Output Intake and Output 02/03/24 07:00 Intake Total 1260 ml Balance 1260 ml Intake Oral 860 ml IV Total 400 ml # Voids 6 # Bowel Movements 1 General Appearance: Alert, No acute distress HEENT: Atraumatic, PERRLA, EOMI, Mucous membr. moist/pink Neck: Supple Lungs: Clear to auscultation, Normal air movement Cardiovascular: Regular rate, Normal S1, Normal S2, No murmurs, Gallops, Rubs Abdomen: Normal bowel sounds, Soft, No tenderness Extremities: Normal pulses Neuro: Cranial nerves 3-12 NL Psych/Mental Status: Mental status NL Medications Current Medications Medications Dose Ordered Sig/Key Route Start Time Stop Time Status Last Admin Dose Admin Vancomycin HCl 0 ml @ 0 mls/hr UD IV 01/31/24 04:30 Acetaminophen/ Hydrocodone Bitart 1 tab Q4HP PRN PO 01/31/24 04:30 02/02/24 23:46 1 TAB Ondansetron HCl 4 mg Q4HP PRN IV 01/31/24 04:30 Acetaminophen 650 mg Q6HP PRN PO 01/31/24 04:30 02/02/24 01:09 650 MG Vancomycin HCl 200 ml @ 200 mls/hr Q8H IV 01/31/24 13:00 02/03/24 06:28 200 MLS/HR Piperacillin Sod/ Tazobactam Sod 100 ml @ 25 mls/hr Q6HR IV 02/01/24 18:00 02/03/24 07:51 25 MLS/HR Laboratory Results Laboratory Tests 02/02/24 06:34 02/03/24 04:40 Urinalysis Test 01/30/24 22:42 Urine Color Light-yellow (Yellow) Urine Clarity Turbid (Clear) H Urine pH 6.0 (5.0-9.0) Urine Specific [place] 1.013 (1.001-1.035) Urine Protein 1+ (Negative) H Urine Ketones Negative (Negative) Urine Blood 1+ /uL (Negative) H Urine Nitrite Negative (Negative) Urine Bilirubin Negative (Negative) Urine Urobilinogen Normal mg/dL (Negative) Urine Leukocyte Esterase 3+ /uL (Negative) Urine RBC 9 /hpf (0 - 4) Urine WBC 181 /hpf (0 - 5) Urine Squamous Epithelial Cells Mod /hpf (<5) Urine Bacteria None seen /hpf (None Seen) Urine Glucose Normal mg/dL (Normal) Urine Test Negative (Negative) Microbiology Microbiology Date/Time Source Procedure Growth Status 01/30/24 23:45 Blood Blood Culture - Preliminary NO GROWTH AFTER 72 HOURS OF INCUBATION. Resulted Labs and/or images reviewed: Labs reviewed by me Assessment/Plan Assessment/Plan Bartholin cyst Leukocytosis Early sepsis UTI Hypokalemia Hypotension Current management BC x 2 show no growth Leukocytosis improved. No fever or chills today [employer] follow up as outpatient. DC home today. Plan discussed with: Patient Date of Service: Feb 03, 2024 Billing Provider: ALMA MANN MD Common Visit Codes: [id number] INP/OBS CARE(HIGH) ALMA MANN MD Feb 03, 2024 12:18
[2024-02-03 12:46] VITALS: BP 106/66; PULSE 63; RESP 17; TEMP 97.5; O2SAT 97
--- NOTE | 2024-02-03 13:11 | DVHDS2 ---
Discharge Summary Date of Admission Jan 31, 2024 at 04:27 Date of Discharge: Feb 01, 2024 Labs/Diagnostic Data: Laboratory Results Test 02/03/24 04:40 02/02/24 06:34 01/31/24 01:57 01/30/24 22:42 Creatinine 0.72 mg/dL (0.550-1.02) Glomerular Filtration Rate Calc 108 mL/min (>90) Vancomycin Level Trough 15.3 ug/mL (5-10) White Blood Count 9.6 10^3/uL (4.4-10.8) Red Blood Count 3.33 10^6/uL (4.0-5.20) Hemoglobin 8.6 g/dL (12.2-16.2) Hematocrit 26.9 % (36.0-46.0) Mean Corpuscular Volume 80.6 fL (80.0-100.0) Mean Corpuscular Hemoglobin 25.7 pg (28.0-32.0) Mean Corpuscular Hemoglobin Concent 31.9 g/dL (32.0-36.0) Red Cell Distribution Width 15.3 % (11.8-14.3) Platelet Count 320 10^3/uL (140-450) Mean Platelet Volume 7.1 fL (6.9-10.8) Neutrophils (%) (Auto) 81.0 % (37.0-80.0) Lymphocytes (%) (Auto) 10.5 % (10.0-50.0) Monocytes (%) (Auto) 6.7 % (0.0-12.0) Eosinophils (%) (Auto) 1.7 % (0.0-7.0) Basophils (%) (Auto) 0.1 % (0.0-2.0) Neutrophils # (Auto) 7.8 10 ^3/uL (1.6-8.6) Lymphocytes # (Auto) 1.0 10 ^3/uL (0.4-5.4) Monocytes # (Auto) 0.6 10 ^3/uL (0-1.3) Eosinophils # (Auto) 0.2 10 ^3/uL (0-0.8) Basophils # (Auto) 0 10 ^3/uL (0-0.2) Nucleated Red Blood Cells 0.0 % Sodium Level 143 mmol/L (136-145) Potassium Level 4.2 mmol/L (3.5-5.1) Chloride Level 109 mmol/L (98-107) Carbon Dioxide Level 25 mmol/L (20-31) Anion Gap 9 (5-15) Blood Urea Nitrogen 5 mg/dL (9-23) BUN/Creatinine Ratio 7.2 (10.0-20.0) Serum Glucose 109 mg/dL (74-106) Calcium Level 9.3 mg/dL (8.7-10.4) Magnesium Level 1.9 mg/dL (1.6-2.6) Lactic Acid Level 1.5 mmol/L (0.4-2.0) Urine Color Light-yellow (Yellow) Urine Clarity Turbid (Clear) Urine pH 6.0 (5.0-9.0) Urine Specific [place] 1.013 (1.001-1.035) Urine Protein 1+ (Negative) Urine Ketones Negative (Negative) Urine Blood 1+ /uL (Negative) Urine Nitrite Negative (Negative) Urine Bilirubin Negative (Negative) Urine Urobilinogen Normal mg/dL (Negative) Urine Leukocyte Esterase 3+ /uL (Negative) Urine RBC 9 /hpf (0 - 4) Urine WBC 181 /hpf (0 - 5) Urine Squamous Epithelial Cells Mod /hpf (<5) Urine Bacteria None seen /hpf (None Seen) Urine Glucose Normal mg/dL (Normal) Urine Test Negative (Negative) Other Laboratory Tests 02/03/24 04:40 02/02/24 06:34 Condition at Discharge: Stable Final Diagnosis/Problems List Left labia majora and pubic cellulitis, possible abscess Discharge Disposition: Acute Care Facility SNF Discharge Will this Physician continue t: No Discharge Statement: "Patient was advised to return to the ER or call 911 if any headaches, dizziness, shortness of breath, chest pain, abdominal pain, bleeding, fevers, or worsening of medical condition. Patient was counseled about treatment plan, medications, possible side effects, patientverbalized understanding. All questions were answered to the best of my ability. This discharge took greater then 30 minutes in planning, reviewing documentation, counseling the patient, and discussing with other team members." ASSESSMENT ASSESSMENT Assessment Left labia majora and pubic cellulitis, possible abscess ALMA MANN MD Feb 03, 2024 13:11
[2024-02-03] MEDS ORDERED: LEVO500T91 PO (13:14)
== END 2024-02-03 16:14 | disposition short-term general hospital (02) | DRG 872 ==
LOC: ER 22:10 → OVERFLOW 01-31 04:27 → WEST WING 02-01 01:04
PROVIDERS: ADMIT Nurse Practitioner; ATTEND Internal Medicine
DX: A41.9 Sepsis, unspecified organism (principal); N39.0 Urinary tract infection, site not specified; L03.314 Cellulitis of groin; N76.4 Abscess of vulva; L03.818 Cellulitis of other sites; N75.0 Cyst of Bartholin's gland; E87.6 Hypokalemia; I95.9 Hypotension, unspecified; N76.2 Acute vulvitis; Z92.21 Personal history of antineoplastic chemotherapy; Z90.710 Acquired absence of both cervix and uterus; Z88.6 Allergy status to analgesic agent; Z98.84 Bariatric surgery status; Z85.41 Personal history of malignant neoplasm of cervix uteri; Z92.3 Personal history of irradiation; Z83.3 Family history of diabetes mellitus; Z82.49 Family history of ischemic heart disease and other diseases of the circulatory system; Z87.59 Personal history of other complications of pregnancy, childbirth and the puerperium
CPT/HCPCS: 36415; 74177; 80048; 80202; 81001; 81025; 82565; 83605; 83735; 85025; 87040; 99291; G0378; J2003; J2543